=== PATIENT | female | born 1980 | race Hispanic/Latino ===

== ENCOUNTER 2021-09-02 22:45 | Emergency (ER) | payer OTHER ==
[~2021-09-02] VITALS: Ht 165.1 cm; Wt 68.0 kg
[2021-09-02] MEDS ORDERED: NIFEDIPINE 10 MG CAP PO ONE (23:30)
[2021-09-02 23:52] LABS: EOSINOPHILS % (AUTO) 2.3 % (0.0-8.0); HEMATOCRIT 29.7 % (36-48); LYMPHOCYTES % (AUTO) 15.5 % (21.0-51.0); MEAN CORPUSCULAR HEMOGLOBIN 20.5 pg (27.0-33.0); MEAN CORPUSCULAR VOLUME 68.3 fL (79-99); MONOCYTES % (AUTO) 9.9 % (3.0-13.0); NEUTROPHILS % (AUTO) 70.9 % (40.0-77.0); PLATELET COUNT (AUTO) 459 K/uL (130-400); RED BLOOD CELL COUNT(AUTO) 4.35 MIL/uL (4.00-5.50); RED CELL DISTRIBUTION WIDTH 17.4 % (11.0-15.5); WHITE BLOOD COUNT (AUTO) 9.3 K/uL (4.8-10.8)
[2021-09-02 23:56] LABS: APPEARANCE,URINE Cloudy (CLEAR); BILIRUBIN,URINE Negative (NEGATIVE); COLOR,URINE Yellow (YELLOW); GLUCOSE, URINE (UA) Negative (NEGATIVE); KETONES,URINE Negative (NEGATIVE); LEUKOCYTE ESTERASE ,URINE Moderate (NEGATIVE); NITRATE,URINE Positive (NEGATIVE); OCCULT BLOOD,URINE Negative (NEGATIVE); PH,URINE 6.5 (5.0-8.0); PROTEIN,URINE Negative (NEGATIVE); UROBILINOGEN,URINE 0.2 mg/dL (0.2-1.0)
[2021-09-02 23:57] LABS: HCG,QUAL RESULT NEGATIVE (NEGATIVE)
[2021-09-03 00:01] LABS: CREATININE 0.8 mg/dL (0.5-1.5); POTASSIUM 3.4 mmol/L (3.5-5.1)
[2021-09-03 00:04] LABS: BACTERIA,URINE Many /HPF (None Seen); RBC,URINE None Seen /HPF (0-1); SQUAMOUS EPITHELIAL CELL,UR Few /HPF (0-2)
[2021-09-03 00:06] LABS: ALBUMIN 3.3 g/dL (3.5-5.0); BILIRUBIN,TOTAL 0.2 mg/dL (0.2-1.0); TOTAL PROTEIN, SERUM 7.9 g/dL (6.0-8.3)
[2021-09-03] MEDS ORDERED: AMLO-258 PO (00:24)
[2021-09-03] MEDS ORDERED: CEPH500B PO (00:24)
[2021-09-03 00:44] VITALS: BP 155/74
[2021-09-03] MEDS ORDERED: CYCL10TA16 PO (03:02)
[2021-09-03] MEDS ORDERED: IBUP-2070 PO (03:02)
== END 2021-09-03 00:55 | disposition home or self-care (01) ==
LOC: EDH 22:45
DX: I10 Essential (primary) hypertension (principal); N39.0 Urinary tract infection, site not specified; Z20.822 Contact with and (suspected) exposure to COVID-19; D64.9 Anemia, unspecified; F41.9 Anxiety disorder, unspecified; F32.A Depression, unspecified; F20.9 Schizophrenia, unspecified; Z90.49 Acquired absence of other specified parts of digestive tract; Z98.890 Other specified postprocedural states
CPT/HCPCS: 36415; 71045; 80053; 81001; 81025; 84484; 85025; 87077; 87088; 87186; 87635; 87804 ×2; 93005; 99285; C9803

== ENCOUNTER 2021-09-03 01:20 | Emergency (ER) | payer OTHER ==
[~2021-09-03] VITALS: Ht 165.1 cm; Wt 68.0 kg
[~2021-09-03 01:20] MED LIST: AMLO-258 PO; CEPH500B PO
[2021-09-03 01:36] VITALS: BP 185/98
[2021-09-03] MEDS ORDERED: CYCLOBENZAPRINE HCL 10 MG TABLET PO ONE (03:00)
[2021-09-03] MEDS ORDERED: IBUPROFEN 600 MG TABLET PO ONE (03:00)
[2021-09-03] MEDS ORDERED: CYCL10TA16 PO (03:02)
[2021-09-03] MEDS ORDERED: IBUP-2070 PO (03:02)
== END 2021-09-03 03:09 | disposition home or self-care (01) ==
LOC: EDH 01:20
DX: S80.212A Abrasion, left knee, initial encounter (principal); S80.211A Abrasion, right knee, initial encounter; M25.469 Effusion, unspecified knee; Z90.49 Acquired absence of other specified parts of digestive tract; W18.09XA Striking against other object with subsequent fall, initial encounter; Y93.89 Activity, other specified; Y92.89 Other specified places as the place of occurrence of the external cause; Y99.8 Other external cause status